=== PATIENT | female | born 1935 | race Caucasian/White ===

== ENCOUNTER → 2017-09-14 | Outpatient (CLI) | payer OTHER | END | disposition home or self-care (01) | LOC: PPH VACUNA 15:58 | DX: Z23 Encounter for immunization (principal) ==

== ENCOUNTER 2020-06-15 11:40 | Emergency (ER) | payer OTHER ==
[~2020-06-15] VITALS: Ht 144.8 cm; Wt 32.7 kg
[2020-06-15] MEDS ORDERED: ZESTRIL5 MG (12:11)
== END 2020-06-15 13:30 | disposition home or self-care (01) ==
LOC: ER 11:40
DX: Z48.02 Encounter for removal of sutures (principal)

== ENCOUNTER → 2022-11-11 | Emergency (ER) | payer OTHER ==
[~2022-11-11] VITALS: Ht 147.3 cm; Wt 36.3 kg
[~2022-11-11] MED LIST: ZESTRIL5 MG
== END | disposition left against medical advice (07) ==
LOC: ER 12:23
DX: L97.828 Non-pressure chronic ulcer of other part of left lower leg with other specified severity (principal)

== ENCOUNTER 2022-11-16 13:15 | Emergency (ER) | payer OTHER ==
[~2022-11-16] VITALS: Ht 149.9 cm; Wt 44.5 kg
== END 2022-11-16 18:15 | disposition home or self-care (01) ==
LOC: ER 13:15
DX: I87.2 Venous insufficiency (chronic) (peripheral) (principal); K13.70 Unspecified lesions of oral mucosa; L97.929 Non-pressure chronic ulcer of unspecified part of left lower leg with unspecified severity

== ENCOUNTER 2022-11-27 08:50 | Outpatient (CLI) | payer OTHER | END 2022-11-27 08:54 | disposition home or self-care (01) | LOC: NUCLEAR 08:50 | PROVIDERS: ATTEND General Practice | DX: I87.2 Venous insufficiency (chronic) (peripheral) (principal) ==

== ENCOUNTER → 2022-11-30 | Outpatient (CLI) | payer OTHER | END | disposition home or self-care (01) | LOC: NUCLEAR 09:00 | DX: I87.2 Venous insufficiency (chronic) (peripheral) (principal) ==

== ENCOUNTER 2022-12-14 17:43 | Inpatient (IN) | payer OTHER ==
[~2022-12-14] VITALS: Ht 152.4 cm; Wt 31.8 kg
--- NOTE | 2022-12-14 18:04 | NUR ---
PACIENTE ALERTA Y ORIENTADA EN PERSONA EN COMPANIA DE FAMILIAR QUIEN REFIERE QUE VIENEN POSIBLE CELULITIS. SE OBSERVAN AMBAS PIERNAS CON EDEMA, ERITEMA, CALIENTE AL TACTO Y CON SECRECIONES. SE MONITOREAN VS Y SE UBICA EN PASILLO
--- NOTE | 2022-12-14 19:42 | NUR ---
PTE EVALUADA POR EL DR YEAGER QUIEN ORDENA EL [place]. MS Carlos CARRILLO ORIENTA SOBRE EL [place] ORDENADO, LO CUAL REFIERE ENTENDER, REALIZA PRUEBAS DE LABORATORIO Y ADMINISTRA MEDICAMENTOS JANY ORDEN MEDICA Y SIGUIENDO MEDIDAS ASEPTICAS.
== END 2022-12-17 16:21 | disposition home or self-care (01) | DRG 571 ==
LOC: ER 17:43 → MEDI 21:39
PROVIDERS: ADMIT Internal Medicine; ATTEND Internal Medicine
PROC: 0JBN0ZZ Excision of Right Lower Leg Subcutaneous Tissue and Fascia, Open Approach (ICD-10-PCS; principal; 2022-12-15)
PROC: 0JBP0ZZ Excision of Left Lower Leg Subcutaneous Tissue and Fascia, Open Approach (ICD-10-PCS; 2022-12-15)
DX: L03.115 Cellulitis of right lower limb (principal); L97.919 Non-pressure chronic ulcer of unspecified part of right lower leg with unspecified severity; N17.9 Acute kidney failure, unspecified; L03.116 Cellulitis of left lower limb; B96.4 Proteus (mirabilis) (morganii) as the cause of diseases classified elsewhere; B96.89 Other specified bacterial agents as the cause of diseases classified elsewhere; B95.61 Methicillin susceptible Staphylococcus aureus infection as the cause of diseases classified elsewhere; B95.2 Enterococcus as the cause of diseases classified elsewhere; I87.2 Venous insufficiency (chronic) (peripheral)